=== PATIENT | female | born 1985 | race Caucasian/White ===

== ENCOUNTER → 2016-12-27 | Outpatient (CLI) | payer BC ==
--- NOTE | 2016-12-27 15:27 | RAD ---
Indication right flank pain with hematuria. Axial images through the abdomen and pelvis were obtained. The examination was tailored for the detection of renal and/or ureteral calculi. No IV or gastrointestinal contrast was administered. No prior CT imaging of the abdomen or pelvis is available. The lung bases are clear. The liver and spleen appear unremarkable. Clips are noted in the gallbladder fossa. No pancreatic abnormality is seen. The adrenal glands appear normal. There are 2 minute 1 to 2 mm right renal calculi and there is likely a minute submillimeter calculus on the left only seen on the coronal images. There is no hydronephrosis hydroureter or calcification seen along the course of either ureter. Occasional calcifications, compatible with phleboliths, are noted in the left pelvis. An acute finding in the abdomen is not seen. The appendix is seen in the right lower quadrant and appears unremarkable. No definite acute finding is apparent in the pelvis. There are occasional lymph nodes seen in the right lower abdominal mesentery. These are probably incidental but adenitis is not excluded. IMPRESSION: No definite acute finding seen in the abdomen or pelvis. Minute bilateral intrarenal calculi noted. Occasional lymph nodes in the abdominal mesentery probably incidental. Adenitis is not entirely excluded PQRS Compliance Statement: One or more of the following individualized dose reduction techniques were utilized for this examination: 1. Automated exposure control 2. Adjustment of the mA and/or kV according to patient size 3. Use of iterative reconstruction technique
== END | disposition home or self-care (01) ==
LOC: CT 14:57
PROVIDERS: ATTEND Physician Assistant
DX: N20.0 Calculus of kidney (principal); I88.9 Nonspecific lymphadenitis, unspecified
CPT/HCPCS: 74176